=== PATIENT | female | born 1980 | race Two or more races ===

== ENCOUNTER → 2024-11-05 12:12 | Outpatient (REF) | payer BC, SELFPAY | LOC: HWRAD 12:12 | PROVIDERS: ATTENDING PHYSICIAN Nurse Practitioner Family; FAMILY PHYSICIAN Internal Medicine Geriatric Medicine | DX: R10.9 Unspecified abdominal pain (principal); M54.9 Dorsalgia, unspecified | CPT/HCPCS: 74176 ==

== ENCOUNTER 2025-01-24 23:54 | Emergency (ER) | payer BC, SELFPAY ==
[2025-01-24 23:54] VITALS: BMI 27.9
[2025-01-24 23:58] VITALS: BP 170/96
[2025-01-25 00:21] VITALS: BP 154/91
[2025-01-25 00:42] LABS: % Eosinophils 1.9 % (0-6); % Immature Granulocytes 0.4 % (0-0.5); % Lymphocytes 40.5 % (20.5-51.1); % Monocytes 8.4 % (1.7-9.3); % Neutrophils 47.8 % (42.2-75.2); Absolute Basophils 0.1 10^3/uL (0-0.2); Absolute Eosinophils 0.2 10^3/uL (0-0.7); Absolute Lymphocytes 3.4 10^3/uL (1.2-3.4); Absolute Monocytes 0.7 10^3/uL (0.1-0.6); Hematocrit 36.3 % (37.0-47.0); Hemoglobin 12.4 g/dL (12.0-16.0); Mean Corp Hgb Conc. 34.2 g/dL (33.0-37.0); Mean Corpuscular Hgb 29.8 pg (27.0-31.0); Mean Corpuscular Volume 87.3 fL (81.0-99.0); Mean Platelet Volume 9.4 fL (7.4-10.4); Nucleated Red Blood Cells % 0 %; Platelet Count 349 10^3/uL (130-400); Red Blood Cell Count 4.16 10^6/uL (4.20-5.40); Red Cell Dist. Width 12.6 % (11.5-14.5); White Blood Cell Count 8.3 10^3/uL (4.8-10.8)
[2025-01-25 00:46] LABS: HCG, Serum Qualitative Screen Negative
[2025-01-25 00:49] LABS: ALT (SGPT) 25 U/L (0-35); AST (SGOT) 19 U/L (14-36); Albumin 4.5 g/dl (3.5-5.0); Alkaline Phosphatase 84 U/L (38-126); Blood Urea Nitrogen 18 mg/dl (7-17); Calcium 9.9 mg/dl (8.4-10.2); Carbon Dioxide 25 mmol/L (22-30); Chloride 108 mmol/L (98-107); Estimated Creatinine Clearance 89 ml/min; Glucose 104 mg/dl (70-99); Potassium 3.7 mmol/L (3.5-5.1); Sodium 141 mmol/L (135-145); Total Bilirubin 0.9 mg/dl (0.2-1.3); Total Protein 6.8 g/dl (6.3-8.2); eGFR > 60.00
--- NOTE | 2025-01-25 00:50 | ED.GENMED ---
History of Present Illness
General
Chief Complaint: Cardiac Symptoms
Time Seen by Provider: 01/25/25 00:25
History of Present Illness
History of Present Illness:
44-year-old female presents to the emergency department for evaluation of intermittent episodes of anterior and lateral chest pain occurring over the past several days. She reports pain is very short and episodic, described as a sharp needle.
Denies any shortness of breath. Currently feels lightheaded but did not have the symptoms when the chest pain was present. No associated fevers or chills. No past medical history not currently on any medications. Denies use of exogenous
hormones. No recent illness
Review of Systems
Review of Systems
Allergies reviewed?: Yes
All Other Systems: ROS reviewed and negative except as documented in HPI and ROS
Phy Exam
Physical Exam
Physical Exam:
GEN: Well appearing, NAD, WDWN
HEENT: Oral mucosa moist, no scleral icterus
Cardiac: Regular rate and rhythm, no murmur
Lung: No respiratory distress, no tachypnea, lungs clear to auscultation
chest: No reproducible chest wall tender
MSK: No gross deformity or injuries
Skin: Good color, no pallor or jaundice, no rashes
Neuro: AO x3, moves all extremities freely
Psych: Calm, cooperative
Course
Orders/Labs/Results
Orders:
Orders
01/25/25 00:02
ECG [Electrocardiogram (*1)] Urgent
Reason for Study: Chest Pain
EKG- Treatment ONCE
Test Result ONCE
01/25/25 00:23
Complete Blood Count/With Diff Urgent
Comprehensive Metabolic Panel Urgent
HCG, Serum Qualitative Screen Urgent
Troponin I Urgent
01/25/25 01:48
Chest [CR Chest - 2 Views ] Urgent
Comment:
Reason For Exam: CHEST PAIN
Abnormal Lab Results
01/25/25
00:23
RBC 4.16 L 10^6/uL
(4.20-5.40)
Hct 36.3 L %
(37.0-47.0)
Absolute Monos (auto) 0.7 H 10^3/uL
(0.1-0.6)
Chloride 108 H mmol/L
(98-107)
BUN 18 H mg/dl
(7-17)
Glucose 104 H mg/dl
(70-99)
01/25/25 00:23
01/25/25 00:23
Vital Signs
Initial and Last Documented VS:
Initial Vital Signs
Temp Pulse Resp BP Pulse Ox
97.7 F 74 20 170/96 100
01/24/25 23:58 01/24/25 23:58 01/24/25 23:58 01/24/25 23:58 01/24/25 23:58
Last Documented Vital Signs
Temp Pulse Resp BP Pulse Ox
97.7 F 60 20 127/86 97
01/24/25 23:58 01/25/25 02:00 01/25/25 02:00 01/25/25 02:00 01/25/25 02:00
MDM/Problems Addressed
MDM/Problems Addressed:
patient's workup is unremarkable, unclear etiology to symptoms however doubt ACS given the intermittent nature and lack of significant risk factors. Meets PE rule out criteria. X-ray without evidence for pneumonia. Discussed supportive care and
return parameters
Comment
Comment:
EKG independently interpreted by me shows a normal sinus rhythm at a rate of [address] changes concerning for
*Pulse Oximetry
Patient hypoxic: no (96% on room air)
*Critical Care Note
Total Time (30-74mins, 75-104mins- exclusive of procedures): Not Applicable
ED Attending Note
-
Portions of this chart may have been created with voice recognition software.� Occasional wrong word or��sound alike� substitutions may have occurred due to the inherent limitations of voice recognition software.
Discharge Plan
Departure
Patient Disposition: Home (Routine Discharge)
Date of Disposition: 01/25/25
Time of Disposition: 02:30
Patient with high blood pressure during this ER visit?: No
Discharge Problem:
Atypical chest pain
Instructions: Chest Pain (DC)
Referrals:
UNKNOWN - PT DOES,NOT KNOW [Family Provider]
Activity Restrictions/Additional Instructions:
If your pain continues, follow up with your primary care physician
Interventions
Interventions:
*Risk Screen - Suicide Last Done: 01/24/25 23:58
*General Assessment Last Done: 01/25/25 00:48
*Neglect/Abuse Screening Last Done: 01/24/25 23:58
*ED- Fall Risk Assessment Last Done: 01/25/25 00:48
ED- Pulmonary Assessment Last Done: 01/25/25 00:45
ED- Cardiac Assessment Last Done: 01/25/25 00:45
Discharge Date and Time
Print Language: TU[place]
[2025-01-25 00:59] LABS: Troponin I < 0.012 ng/ml
[2025-01-25 01:00] VITALS: BP 124/85
[2025-01-25 02:00] VITALS: BP 127/86
== END 2025-01-25 02:36 | disposition home or self-care (01) ==
LOC: EMR 23:54
PROVIDERS: EMERGENCY PHYSICIAN Student in an Organized Health Care Education/Training Program
DX: R07.89 Other chest pain (principal); R42 Dizziness and giddiness
CPT/HCPCS: 99283; 71046; 80053; 84484; 84703; 85025; 93005